=== PATIENT | male | born 1990 ===

== ENCOUNTER 2025-06-13 11:36 | Emergency (ER) | payer OTHER, SELFPAY ==
[2025-06-13] MEDS ORDERED: cefTRIAXone (ROCEPHIN) 1 GM VIAL ONE (13:19)
== END 2025-06-13 13:29 | disposition home or self-care (01) ==
LOC: ERS 11:36
DX: L03.115 Cellulitis of right lower limb (principal); F17.210 Nicotine dependence, cigarettes, uncomplicated
CPT/HCPCS: 96372; 99282; J0696